=== PATIENT | female | born 1995 ===

== ENCOUNTER 2021-04-01 17:56 | Emergency (ER) | payer MEDICAID, OTHER ==
[~2021-04-01] VITALS: Ht 175.3 cm; Wt 127.5 kg
[2021-04-01 21:01] VITALS: BP 144/90
== END 2021-04-01 21:29 | disposition left against medical advice (07) ==
LOC: ER 17:56
DX: S61.452A Open bite of left hand, initial encounter (principal); S51.852A Open bite of left forearm, initial encounter; Z53.21 Procedure and treatment not carried out due to patient leaving prior to being seen by health care provider; W54.0XXA Bitten by dog, initial encounter; Y93.89 Activity, other specified; Y92.89 Other specified places as the place of occurrence of the external cause; Y99.8 Other external cause status

== ENCOUNTER → 2022-10-23 | Emergency (ER) | payer MEDICAID | END | disposition left against medical advice (07) | LOC: ER 02:39 | DX: I10 Essential (primary) hypertension (principal); Z53.21 Procedure and treatment not carried out due to patient leaving prior to being seen by health care provider ==